=== PATIENT | female | born 1995 | race Caucasian/White ===

== ENCOUNTER 2024-11-16 12:55 | Emergency (ER) | payer MEDICAID, SELFPAY ==
[2024-11-16 13:02] VITALS: BP 116/81; PULSE 94; RESP 18; TEMP 36.3; O2SAT 100
--- OUTSIDE RECORDS SUMMARY | 2024-11-16 13:03 | XMS_ITS | Clinical Summary ---
Author Organization [address] Address [address] [place] [address] Care Team Providers Care Accounting Office Manager Name Role Phone No, Physician Primary Care Provider Allergies No known active allergies Social History Tobacco Use Types Packs/Day Years Used Date Smoking Tobacco: Never Assessed Personal Safety Answer Date Recorded Have you ever been in or are you currently in a harmful physical or emotional relationship or is someone making you feel afraid or unsafe? Denies 10/20/2023 Comments Unknown Sex and Gender Information Value Date Recorded Sex Assigned at Not on file Legal Sex Female 12:53 PM CDT Gender Identity Not on file Sexual Orientation Not on file Last Filed Vital Signs Vital Sign Reading Time Taken Comments Blood Pressure 127/87 10/20/2023 1:55 PM CDT Pulse 89 10/20/2023 1:55 PM CDT Temperature 36.6 C (97.8 F) 10/20/2023 1:55 PM CDT Respiratory Rate 18 10/20/2023 1:55 PM CDT Oxygen Saturation 100% 10/20/2023 1:55 PM CDT Inhaled Oxygen Concentration - - Weight 56.7 kg (125 lb) 10/20/2023 1:55 PM CDT Height - - Body Mass Index - - Plan of Treatment Health Maintenance Due Date Last Done Comments Cervical Cancer Screening 1995 Depression Screening 1995 Hepatitis C Screening 1995 DTaP/Tdap/Td Vaccine (1 - Tdap) 08/10/2006 Varicella Vaccines (1 of 2 - 13+ 2-dose series) 08/10/2008 Hepatitis B Screening 08/10/2013 Regular Well Visit/Exam 18-64 08/10/2013 HPV Vaccines (1 - 3-dose SCD M series) 08/10/2022 Influenza Vaccine (#1) 2024 Pneumococcal vaccine <65 Aged Out No longer eligible based on patient's age to complete this topic Insurance MEDICAID Care Teams Accounting Office Manager Relationship Specialty Start Date End Date No, Physician PCP - General 10/19/23
--- OUTSIDE RECORDS SUMMARY | 2024-11-16 13:03 | XMS_ITS | Clinical Summary ---
Author Organization [facility] Address [address] [place] [address] Care Team Providers Care Plumber Name Role Phone Any Escalona MD Primary Care Provider [phone] Allergies No known active allergies Medications etonogestrel (Nexplanon) 68 MG implant Nexplanon 68 mg subdermal implant Inject by subcutaneous route. 5 Active Valacyclovir HCl 1000 MG Tab TAKE ONE TABLET BY MOUTH TWICE DAILY (ONCE IN THE MORNING AND ONCE IN THE EVENING) FOR TEN DAYS 20 tablet 3 Active Active Problems Problem Noted Date Diagnosed Date Closed nondisplaced fracture of fifth left metat arsal bone 10/27/2023 Surgical History Surgery Date Site/Laterality Comments NO PAST SURGERIES HB ETONOGESTREL (NEXPLANON) IMPLANT Left Medical History Medical History Date Comments Herpes, genital Social History Tobacco Use Types Packs/Day Years Used Date Smoking Tobacco: Some Days Cigarettes Smokeless Tobacco: Never Tobacco Cessation:Ready to Q uit: No; Counseling Given: Not Answered Alcohol Use Standard Drinks/Week Comments Yes 0 (1 standard drink = 0.6 oz pur e alcohol) Inadequate Housing Answer Date Recorded Social Determinants: Housing (Overall Score Help er) 0 07/21/2020 Sexually Active Control Partners Comments Yes Implant Male Comments No Sex and Gender Information Value Date Recorded Sex Assigned at Female 07/26/2020 8:54 AM CDT Legal Sex Female 9:17 PM CDT Gender Identity Female 07/26/2020 8:54 AM CDT Sexual Orientation Bisexual 07/26/2020 8: 54 AM CDT Obstetrics History Para Term AB IAB SAB Ectopic Molar Multiple Living Live Births 0 0 0 0 0 0 0 0 0 0 0 0 Last Filed Vital Signs Vital Sign Reading Time Taken Comments Blood Pressure 107/68 01/19/2024 3:04 PM LEAD TRAINER Pulse 96 01/19/2024 3:04 PM LEAD TRAINER Temperature 36.9 C (98.5 F) 05/19/2022 11:11 AM CDT Respiratory Rate 16 05/26/2022 3:05 PM CDT Oxygen Saturation 100% 05/26/2022 3:05 PM CDT Inhaled Oxygen Concentration - - Weight 54 kg (119 lb) 10/27/2023 11:25 AM CDT Height 162.6 cm (5' 4) 10/27/2023 11:25 AM CDT Body Mass Index 20.43 10/27/2023 11:25 AM CDT Plan of Treatment Health Maintenance Due Date Last Done Comments Depression Screening 2007 Varicella Vaccine (1 of 2 - 13+ 2-dose series) 08/10/2008 DTaP/Tdap/Td Vaccine (1 - Tdap) 08/10/2014 Hepatitis B Vaccine (1 of 3 - 19+ 3-dose series) 08/10/2014 Pneumococcal Vaccine 0-49 (1 of 2 - PCV) 08/10/2014 Cervical Cancer Screening 08/10/2016 Pap Smear 08/10/2016 COVID-19 Vaccine (2 - 2024-2 6 season) 2024 09/04/2020 Influenza Vaccine (#1) 2024 HPV Vaccine (No Doses Required) Completed Hepatitis A Vaccine Aged Out No longe r eligible based on patient's age to complete this topic Meningococcal Serogroup B Vaccine Aged Out No longer eligible based on patient's age to complete this topic Meningococcal Vaccine Aged Out No todd keira eligible based on patient's age to complete this topic Insurance JA Member Subscriber Plan / Payer (Ef fective 2023-Present) Name:Charo Barreto Relation to Subscriber:Self Name:Charo Barreto Payer ID:[id number] (NAIC) Group ID:Not on file Type:[id number] HMO Address: [facility] [address] [place] [address] Care Teams Plumber Relationship Specialty Start Date End Date Any Escalona MD [address] [place] [address] PCP - General Obstetrics & Gynecology 10/31/20
--- OUTSIDE RECORDS SUMMARY | 2024-11-16 13:03 | XMS_ITS | Encounter Summary ---
Author Organization [facility] Address [address] [place] [address] Care Team Providers Care Rabbet Operator Name Role Phone Any Escalona MD Primary Care Provider [phone] Encounter Details Date Type Department Care Team (Late st Contact Info) Description 05/26/2022 E-Advice [facility] [address] [place] [address] Ledy Valdez, RN visit on 05-26-22 Social History Tobacco Use Types Packs/Day Years Used Date Smoking Tobacco: Some Days Cigarettes Smokeless Tobacco: Never Alcohol Use Standard Drinks/Week Comments Yes 0 [...] Orientation Bisexual 07/26/2020 8: 54 AM CDT documented as of this encounter Plan of Treatment Not on file documented as of this encounter Visit Diagnoses Not on filedocumented in this encounter Care Teams Rabbet Operator Relationship Specialty Start Date End Date Any Escalona MD [address] [place] [id number] PCP - General Obstetrics & Gynecology 10/31/20 documented as of this encounter
--- NOTE | 2024-11-16 13:22 | ED_ITS ---
HPI - URI/Sore Throat General Chief Complaint: Upper Respiratory Infection Stated Complaint: covid test/note Time Seen by Provider: 11/16/24 13:15 Source: patient and RN notes reviewed Mode of arrival: ambulatory Limitations: no limitations History of Present Illness HPI Narrative: Patient presents today complaining of 2-3 day history of body aches, dizziness, sweats, chills, fatigue, slight cough. She did a home COVID test at home positive. She was supposed to go to a music festival but had to cancel due to illness and needs a note excusing her for her to get a refund. Denies fever, shortness of breath. She has been taking TheraFlu with some improvement. Related Data Home Medications ?Medication ?Instructions ?Recorded ?Confirmed ?Last Taken ?Type No Home Medications 11/16/24 11/16/24 U nknown History Allergies Allergy/AdvReac Type Severity Reaction Status Date / Time No Known Allergies Allergy Verified 11/16/24 13:08 [facility] Comments At time of signature, I have reviewed and agree with nursing past medical, surgical, social and family history unless otherwise noted. Please see nursing chart for further information. There is no relevant family history pertinent to the presenting complaint Exam Narrative: GENERAL: Mildly ill-appearing, well-nourished, and in no acute distress. HEAD: Normocephalic, atraumatic. EYES: EOMI. No redness or drainage. Conjunctivae normal. ENT: Mucous membranes pink and moist. Nares clear. No rhinorrhea. TMs normal bilaterally. Throat normal. Uvula midline. NECK: Normal AROM. Supple. No lymphadenopathy. CHEST: No respiratory distress. Clear to auscultation. HEART: Regular rate and rhythm. No murmur appreciated. EXTREMITIES: Normal range of motion. No edema. SKIN: Warm, dry, no rash. Capillary refill normal. Normal skin turgor. NEURO: No focal deficits. Alert and oriented x3. Gait steady. PSYCH: Normal affect. No signs of depression or anxiety. Course Course Level of Care: [facility] Care Visit Vital Signs Vital signs: Vital Signs Temperature 97.4 F L 11/16/24 13:02 Pulse Rate 94 11/16/24 13:02 Respiratory Rate 18 11/16/24 13:02 Blood Pressure 116/81 11/16/24 13:02 Pulse Oximetry 100 11/16/24 13:02 Oxygen Delivery Room Air 11/16/24 13:02 Temperature 97.4 F L 11/16/24 13:02 Pulse Rate 94 11/16/24 13:02 Respiratory Rate 18 11/16/24 13:02 Blood Pressure 116/81 11/16/24 13:02 Pulse Oximetry 100 11/16/24 13:02 Oxygen Delivery Room Air 11/16/24 13:02 Review MDM - URI/Sore Throat MDM Narrative Medical decision making narrative: 29-year-old female patient presents today after a home COVID test that was positive, the 3 day history of body aches, dizziness, sweats and chills, fatigue, and slight cough. Needs a note so she can get a refund on some music festival tickets. Has instructions on what she needs the note to say. Upon exam, patient is mildly ill appearing but remainder of exam is fairly benign. Vital signs stable. Note provided. Anticipatory guidance given Differential Diagnosis Differential diagnosis: Likely other (COVID-19) Critical Care Time Critical Care Time Critical Care Time: No Discharge Plan Discharge Clinical Impression: COVID-19 Patient Disposition: Home Condition: Stable Instructions: COVID-19 (Coronavirus Disease 2019) (ED) Additional Instructions: Continue treating your symptoms at home. Rest and stay hydrated. If symptoms worsen to include chest pain, shortness of breath, development of new fever greater than 100.3, please go to the ER immediately for further evaluation and treatment. Patient Language: Setswana Prescriptions: No Action No Home Medications Follow-up/Referrals: PHYSICIAN,REAGENT TENDER [Primary Care Provider, Internal Medicine] Stand Alone Forms: Work/School Release IP Time of Disposition: 13:26
== END 2024-11-16 13:30 | disposition home or self-care (01) ==
PROVIDERS: Emergency Provider Nurse Practitioner
DX: U07.1 COVID-19 (principal)
CPT/HCPCS: 99211; G0463